=== PATIENT | female | born 1965 | race Caucasian/White ===

== ENCOUNTER 2017-07-19 14:03 | Outpatient (CLI) | payer BC | END 2017-07-19 14:04 | disposition home or self-care (01) | LOC: BICMAMMO 14:03 | PROVIDERS: ATTEND Obstetrics & Gynecology | DX: Z12.31 Encounter for screening mammogram for malignant neoplasm of breast (principal); Z80.3 Family history of malignant neoplasm of breast | CPT/HCPCS: 77063; 77067 ==

== ENCOUNTER 2018-04-17 09:38 | Outpatient (CLI) | payer BC ==
[~2018-04-17 09:38] MED LIST: EPINEPHrine 1 MG/ML AMP ONE; Gadobenate Dimeglumine 529 MG/1 ML (20ML VIAL) ONE; Iopamidol 300 61% 30 ML VIAL ONE; Lidocaine 1% PF 10 ML AMP ONE
--- NOTE | 2018-04-17 12:54 | RAD ---
LEFT SHOULDER 3 VIEWS: HISTORY: Internal derangement of the left shoulder. Evaluate for labral injury and teart. COMPARISON: None. EXPOSURE: 0.5 minutes. 54.1 mCi*^m2. FINDINGS: Three views left shoulder inspector elevators radiograph do not demonstrate any fracture or dislocation. Visualize d left ribs are unremarkable. Successful left shoulder arthrogram. A total of 13 cc of the contrast admixture was administered int o the joint space. TECHNIQUE: Consent was obtained to perform a fluoroscopic-guided left shoulder arthrogram. The left shoulder wa s prepped and draped in a sterile fashion. 1% Lidocaine, buffered with sodium bicarbonate, was used for local anesthesia. Under fluoroscopic guidance, a 22-gauge spinal needle was advanced into the le ft shoulder joint space. A total of 13 cc of contrast was administered into the joint space. The pa tient tolerated the procedure well. No immediate postprocedure complications. IMPRESSION: Successful left shoulder arthrogram. POS: [facility]
--- NOTE | 2018-04-17 13:11 | MRI ---
POST ARTHROGRAM MRI OF LEFT SHOULDER PERFORMED WITH CONTRAST ENHANCEMENT: HISTORY: Left shoulder pain. FINDINGS: Contrast injection was performed by Dr. Stubbs with good opacification of the joint space. A mixture of approximately 12 cc of dilute MultiHance and nonionic contrast was injected for the study. Some mild AC joint hypertrophic change is present. The supra as well as infraspinatus tendons are intact. Subscapularis muscle and tendon are normal in appearance and the biceps tendon is normal in position within the bicipital groove. No labral tears are visualized. The inferior glenohumeral ligament is intact. IMPRESSION: No evidence of rotator cuff or labral tear. POS: [facility]
== END 2018-04-17 09:39 | disposition home or self-care (01) ==
LOC: RAD 09:38
PROVIDERS: ATTEND Pediatrics Sports Medicine
DX: M24.812 Other specific joint derangements of left shoulder, not elsewhere classified (principal)
CPT/HCPCS: 23350; A9579; J0171; J7050

== ENCOUNTER 2023-10-05 07:52 | Outpatient (CLI) | payer BC | END 2023-10-05 07:53 | disposition home or self-care (01) | LOC: BICCT 07:52 | PROVIDERS: ATTEND Nurse Practitioner Family | DX: R31.29 Other microscopic hematuria (principal) | CPT/HCPCS: 74178 ==

== ENCOUNTER 2024-01-22 13:56 | Outpatient (CLI) | payer BC ==
[2024-01-22 16:08] LABS: #Basophils 0.08 10x3/uL (0.0-0.2); %Basophils 1.3 % (0.0-1.0); %Eosinophils 3.2 % (0.0-10.0); %Lymphocytes 36.5 % (21.0-51.0); %Monocytes 9.1 % (0.0-10.0); %Neutrophils 49.2 % (42.0-75.0); Hematocrit 43.2 % (36.0-47.0); Hemoglobin 13.8 g/dL (12.0-16.0); Mean Corpuscular HGB CONC 31.9 g/dL (32.0-36.0); Mean Corpuscular Hemoglobin 30.1 pg (27.0-31.0); Mean Corpuscular Volume 94.3 fL (78.0-98.0); Mean Platelet Volume 11.7 fL (7.4-10.4); Platelet Count 199 10x3/uL (130-400); RBC Distribution Width 13.8 % (11.5-14.5); Red Blood Cell (RBC) Count 4.58 mill/uL (4.20-5.40)
[2024-01-22 16:26] LABS: Anion Gap 12 mmol/L (10-20); BUN (Urea Nitrogen) 15 mg/dL (9.8-20.1); Calc. Creatinine Clearance 0 mL/min (70-130); Carbon Dioxide 25 mmol/L (22-29); Chloride 108 mmol/L (98-107); Estimated GFR 92; Glucose 79 mg/dL (70-105); Potassium 3.9 mmol/L (3.5-5.1); Sodium 141 mmol/L (136-145)
== END 2024-01-22 13:57 | disposition home or self-care (01) ==
LOC: LABBT 13:56
PROVIDERS: ATTEND Orthopaedic Surgery
DX: Z01.818 Encounter for other preprocedural examination (principal); S83.242A Other tear of medial meniscus, current injury, left knee, initial encounter
CPT/HCPCS: 80048; 85025; 93005; 93010

== ENCOUNTER 2024-01-25 06:23 | Day surgery (SDC) | payer BC ==
[2024-01-22 14:47] VITALS: BMI 26.6
[2024-01-25] MEDS ORDERED: PROPOFOL 20 ML ONE ×2 (06:58→07:03)
[2024-01-25] MEDS ORDERED: fentaNYL 50 mcg/mL 1 mL Vial ONE (06:58)
[2024-01-25] MEDS ORDERED: Lidocaine 1% PF 5 ML VIAL ONE (06:58)
[2024-01-25] MEDS ORDERED: Lidocaine 2% PF 5 ML VIAL ONE (07:03)
[2024-01-25] MEDS ORDERED: CEFAZOLIN 2 GM VIAL ONE (07:13)
[2024-01-25] MEDS ORDERED: Bupivacaine PF 0.5% 30 ML VIAL ONE (07:29)
[2024-01-25] MEDS ORDERED: EPINEPHrine 1 MG/ML VIAL ONE (07:29)
[2024-01-25] MEDS ORDERED: Dexamethasone 20 MG/5 ML VIAL ONE (08:02)
[2024-01-25] MEDS ORDERED: Ondansetron PF 4 MG/2 ML Vial ONE (08:02)
[2024-01-25] MEDS ORDERED: ePHEDrine Sulfate 50 MG/10 ML VIAL ONE (08:23)
[2024-01-25] MEDS ORDERED: fentaNYL PF 100 MCG/2 ML SYRINGE ONE (09:10)
[2024-01-25] MEDS ORDERED: HYDROcodone/Acetaminophen 5/325 mg Tablet ONE (10:12)
== END 2024-01-25 11:20 | disposition home or self-care (01) ==
LOC: SDC 06:23
PROVIDERS: ATTEND Orthopaedic Surgery
PROC: 3E0T3BZ Introduction of Anesthetic Agent into Peripheral Nerves and Plexi, Percutaneous Approach (ICD-10-PCS; principal; 2024-01-25)
PROC: 0SBD4ZZ Excision of Left Knee Joint, Percutaneous Endoscopic Approach (ICD-10-PCS; principal; 2024-01-25)
DX: S83.242A Other tear of medial meniscus, current injury, left knee, initial encounter (principal); M23.007 Cystic meniscus, unspecified meniscus, left knee; M94.262 Chondromalacia, left knee; J45.20 Mild intermittent asthma, uncomplicated; X58.XXXA Exposure to other specified factors, initial encounter; Z79.899 Other long term (current) drug therapy; Z79.2 Long term (current) use of antibiotics
CPT/HCPCS: J0171; J0665; J1100; J2405; J2704; J3010

== ENCOUNTER 2024-10-01 14:15 | Outpatient (CLI) | payer BC | END 2024-10-01 14:16 | disposition home or self-care (01) | LOC: BICCT 14:15 | PROVIDERS: ATTEND Orthopaedic Surgery | DX: M17.11 Unilateral primary osteoarthritis, right knee (principal) ==